=== PATIENT | male | born 1940 | race Caucasian/White ===

== ENCOUNTER 2019-05-01 21:00 | Emergency (ER) | payer MEDICARE, MEDICAID ==
--- NOTE | 2019-05-01 21:17 | ED ---
Shortness of Breath - HPI Summary HPI Summary: 78 year old M arriving via EMS from home to [facility] complains of worsening shortness of breath x2 weeks. Patient developed hiccups 2 weeks ago then shortness of breath. He states there are times when he is gasping for air and unable to breathe. He notes that he felt like he was going to stop breathing last night. No chest pain. The patient rates the pain 2/10 in severity. Symptoms aggravated by nothing. Symptoms alleviated by nothing. He has never had hiccuping symptoms before but has had shortness of breath in the past. VSS en route per EMS. He was placed on supplemental nasal cannula oxygen. Medications reviewed. Allergies noted. Home Medications Medication Instructions Recorded Confirmed Type Atenolol TAB* [Tenormin TAB* 50 MG] 50 mg PO DAILY 05/01/19 05/01/19 History Atorvastatin* [Lipitor*] 20 mg PO DAILY 05/01/19 05/01/19 History Ramipril CAP* [Altace CAP*] 5 mg PO DAILY 05/01/19 05/01/19 History Warfarin TAB(*) [Coumadin TAB(*)] 1 - 3 mg PO DAILY 05/01/19 05/01/19 History - History of Current Complaint Time Seen by Provider: 05/01/19 21:12 Hx Obtained From: Patient, EMS Onset/Duration: Lasting Weeks - 2, Still Present Current Severity: Mild - Allergy/Home Medications Allergies/Adverse Reactions: Allergies Allergy/AdvReac Type Severity Reaction Status Date / Time No Known Allergies Allergy Verified 05/01/19 21:26 Home Medications: Home Medications Atenolol TAB* [Tenormin TAB* 50 MG] 50 mg PO DAILY 05/01/19 [History Confirmed 05/01/19] Atorvastatin* [Lipitor*] 20 mg PO DAILY 05/01/19 [History Confirmed 05/01/19] Ramipril CAP* [Altace CAP*] 5 mg PO DAILY 05/01/19 [History Confirmed 05/01/19] Warfarin TAB(*) [Coumadin TAB(*)] 1 - 3 mg PO DAILY 05/01/19 [History Confirmed 05/01/19] Baclofen TAB* [Lioresal TAB*] 20 mg PO TID PRN #30 tab 05/02/19 [Rx] PMH/Surg Hx/FS Hx/Imm Hx Endocrine/Hematology History: Denies: Hx Diabetes Cardiovascular History: Reports: Hx Coronary Artery Disease, Hx Hypercholesterolemia, Hx Hypertension - ON MEDS, Hx Myocardial Infarction Denies: Hx Angina, Hx Valvular Heart Disease Respiratory History: Reports: Hx Sleep Apnea - PER PT, NOT TESTED Denies: Hx Asthma, Hx Chronic Obstructive Pulmonary Disease (COPD) GI History: Reports: Hx Gastroesophageal Reflux Disease - ON MEDS, Hx Ulcer - 1970s, HEALED WITH MEDS/DIET Musculoskeletal History: Reports: Hx Arthritis - HANDS, LOW BACK Sensory History: Reports: Hx Cataracts - BILATERAL, Hx Contacts or Glasses - GLASSES Opthamlomology History: Reports: Hx Cataracts - BILATERAL, Hx Contacts or Glasses - GLASSES - Surgical History Surgery Procedure, Year, and Place: 2001 LEFT HAND TRAUMA [place] Hx Anesthesia Reactions: No - Family History Known Family History: Positive: Cardiac Disease - Social History Alcohol Use: None Substance Use Type: Reports: None Hx Tobacco Use: Yes Smoking Status (MU): Former Smoker Type: Cigarettes Amount Used/How Often: 2PPD 50 YRS Have You Smoked in the Last Year: No Review of Systems Negative: Chest Pain Positive: Shortness Of Breath All Other Systems Reviewed And Are Negative: Yes Physical Exam - Summary Physical Exam Summary: Appearance: Elderly, somewhat unkempt male lying in bed comfortably in no acute distress with periodic hiccups noted Skin: Warm, dry, no obvious rash Eyes: sclera anicteric, no conjunctival pallor HENT: mucous membranes moist, pharynx appears normal Neck: Supple, nontender Respiratory: Clear to auscultation, no signs of respiratory distress Cardiovascular: Normal S1, S2. No murmurs. Normal distal pulses in tibial and radial bilaterally. Abdomen: Soft, nontender, normal active bowel sounds present Musculoskeletal: Normal, Strength/ROM Intact Neurological: A&Ox3, awake and alert, mentation is normal, speech is fluent and appropriate Psychiatric: affect is normal, does not appear anxious or depressed Triage Information Reviewed: Yes Vital Signs Reviewed: Yes Procedures - Sedation Patient Received Moderate/Deep Sedation with Procedure: No Diagnostics - Laboratory Result Diagrams: 05/01/19 21:39 05/01/19 21:39 Lab Statement: Any lab studies that have been ordered have been reviewed, and results considered in the medical decision making process. - Radiology CXR Radiology Interpretation Completed By: ED Physician - NO ACUTE PROCESS. Pending official report. - CT CHEST CT Interpretation Completed By: Radiologist - IMPRESSION: 1. Nondiagnostic study for pulmonary emboli evaluation due to scan and contrast timing. If there is continued clinical concern for PE, followup chest CT in 24 hours or concurrent V/Q scan recommended. 2. Right lower lobe pulmonary nodule. Based on current Purnima criteria, if high risk optional followup chest CT in 12 months recommended. 3. Small hiatal hernia. 4. Cholelithiasis. ED physician has reviewed this imaging report. - EKG 2129 Summary of EKG Findings: Atrial fibrillation 72 BPM. IVCD. LVH with IVCD. ED physician has reviewed and interpreted this EKG. Re-Evaluation - Re-Evaluation First Eval Re-Evaluation Time: 22:25 Comment: aware of troponin 0.03 Second Eval Re-Evaluation Time: 02:05 Comment: patient feels like he can't breathe per nurse. will order Ativan Course/Dx - Course Course Of Treatment: 78 y/o M presents with worsening shortness of breath x2 weeks. Patient developed hiccups 2 weeks ago then shortness of breath. The dyspnea is not described as typical sense of feeling winded, he just feels like he will stop breathing after a hiccup. He has never had hiccuping symptoms before but has had shortness of breath in the past. No chest pain. VSS en route per EMS. He was placed on supplemental nasal cannula oxygen. He is an elderly, somewhat unkempt male lying in bed comfortably in no acute distress with periodic hiccups noted. Bloodwork results with no significant abnormalities except for troponin 0.03. An EKG shows atrial fibrillation 72 BPM. IVCD. LVH with IVCD. CXR shows no acute process. CHEST CT shows IMPRESSION: 1. Nondiagnostic study for pulmonary emboli evaluation due to scan and contrast timing. If there is continued clinical concern for PE, followup chest CT in 24 hours or concurrent V/Q scan recommended. 2. Right lower lobe pulmonary nodule. Based on current Purnima criteria, if high risk optional followup chest CT in 12 months recommended. 3. Small hiatal hernia. 4. Cholelithiasis. Patient is feeling better. Patient will be discharged home with prescription for Lioresal and follow up from his primary care provider. Patient was instructed to return to Emergency Department for new or worsening symptoms. Patient understands and is agreeable to this plan. - Diagnoses Provider Diagnoses: Dyspnea, Hiccups Discharge ED - Sign-Out/Discharge Documenting (check all that apply): Patient Departure - Discharge Plan Condition: Good Disposition: HOME Prescriptions: Baclofen TAB* [Lioresal TAB*] 20 mg PO TID PRN #30 tab PRN Reason: Hiccups Patient Education Materials: Hiccups (ED), Dyspnea (ED) Referrals: Luca Torres MD [Primary Care Provider] - Additional Instructions: We ran some extensive testing on you tonight which has not shown any problem that would cause your hiccups. The chest film and CT scan of your chest are normal. I have prescribed some medication that should help with the hiccups. If this problem persists, contact your regular doctor for followup. - Billing Disposition and Condition Condition: GOOD Disposition: Home - Attestation Statements Document Initiated by Uday: Yes Documenting Scribe: Svetlana Al Provider For Whom Uday is Documenting (Include Credential): Laith Shaffer MD Scribe Attestation: Svetlana Vicente, scribed for Laith Shaffer MD on 05/06/19 at 1433. Scribe Documentation Reviewed: Yes Provider Attestation: The documentation as recorded by the Svetlana pederson accurately reflects the service I personally performed and the decisions made by me, Laith Shaffer MD Status of Scribe Document: Viewed
[2019-05-01 21:46] LABS: ABS Basophils 0.1 10^3/ul (0-0.2); ABS Eosinophils 0.2 10^3/ul (0-0.6); ABS Lymphocytes 1.6 10^3/ul (1.0-4.8); ABS Monocytes 1.2 10^3/ul (0-0.8); ABS Neutrophils 8.9 10^3/ul (1.5-7.7); Eosinophil % 1.4 %; Hematocrit 47 % (42-52); Lymphocyte % 13.3 %; Mean Corpuscular HGB Conc 34 g/dL (31-36); Mean Corpuscular Hemoglobin 30 pg (27-31); Mean Corpuscular Volume 88 fL (80-94); Nucleated Red Blood Cells % 0.1; Platelet Count 291 10^3/uL (150-450); Red Blood Count 5.33 10^6 /uL (4.18-5.48); Red Cell Distribution Width 13 % (10-15)
[2019-05-01 22:03] LABS: ALT 13 U/L (7-52); AST 18 U/L (13-39); Albumin/Globulin Ratio 1.3 (1-3); Alkaline Phosphatase 62 U/L (34-104); Anion Gap 7 mmol/L (2-11); BUN/Creatinine Ratio 12.5 (8-20); Blood Urea Nitrogen 12 mg/dL (6-24); CO2 Carbon Dioxide 27 mmol/L (22-32); Calcium 9.2 mg/dL (8.6-10.3); Chloride 100 mmol/L (101-111); EGFR African American 92.1 (>60); EGFR Non-African American 76.2 (>60); Globulin 3.2 g/dL (2-4); Glucose 94 mg/dL (70-100); Sodium 134 mmol/L (135-145); Total Protein 7.2 g/dL (6.4-8.9)
[2019-05-01 22:25] LABS: Troponin I 0.03 ng/mL (<0.03)
[2019-05-02] MEDS ORDERED: Iohexol 300* (CONTRAST) 10 ML SDV IV ONE (00:20)
[2019-05-02] MEDS ORDERED: LORazepam INJ* 2 MG/ML 1 ML VIAL IV PUSH ONE (02:06)
[2019-05-02] MEDS ORDERED: Lorazepam PYXIS KEY PRN (02:06)
[2019-05-02] MEDS ORDERED: Baclofen TAB* 20 MG PO ONE (03:16)
[2019-05-02 05:29] VITALS: BP 140/72
[2019-05-02 08:26] LABS: INR 2.18 (0.82-1.09)
== END 2019-05-02 05:29 | disposition home or self-care (01) ==
LOC: ED 21:00
DX: R06.00 Dyspnea, unspecified (principal); R06.6 Hiccough; I48.91 Unspecified atrial fibrillation; R06.02 Shortness of breath; I25.10 Atherosclerotic heart disease of native coronary artery without angina pectoris; E78.00 Pure hypercholesterolemia, unspecified; I10 Essential (primary) hypertension; I25.2 Old myocardial infarction; K21.9 Gastro-esophageal reflux disease without esophagitis; Z87.891 Personal history of nicotine dependence; Z79.899 Other long term (current) drug therapy; Z79.01 Long term (current) use of anticoagulants; R94.31 Abnormal electrocardiogram [ECG] [EKG]
CPT/HCPCS: 36415; 71046; 71260; 80053; 84484; 85025; 85379; 85610; 93005; 96374; 99285; A9270-GY; J2060

== ENCOUNTER 2020-06-26 08:01 | Inpatient (IN) ==
[2020-06-26] MEDS ORDERED: Sodium Phosphate ADULT ENEMA 133 ML BTL PR PRN (15:44)
[2020-06-26] MEDS ORDERED: Senna TAB 8.6 mg TAB PO PRN (15:44)
[2020-06-27 06:52] LABS: Calcium 9.1 mg/dL (8.6-10.3); EGFR African American 108.4 (>60); EGFR Non-African American 89.6 (>60); Potassium 3.9 mmol/L (3.5-5.0)
[2020-06-27 07:17] LABS: INR 2.83 (0.82-1.09)
[2020-06-27] MEDS ORDERED: Aspirin EC 81 mg TAB.EC (enteric coated) PO SCH (09:00)
[2020-06-28 06:18] LABS: INR 2.63 (0.82-1.09)
[2020-06-28 06:39] LABS: Hematocrit 43 % (42-52); Mean Corpuscular HGB Conc 33 g/dL (31-36); Mean Corpuscular Hemoglobin 31 pg (27-31); Mean Corpuscular Volume 94 fL (80-94); Mean Platelet Volume 8.1 fL (7.4-10.4); Platelet Count 386 10^3/uL (150-450); Red Blood Count 4.57 10^6 /uL (4.18-5.48); Red Cell Distribution Width 18 % (10-15); White Blood Count 16.2 10^3/uL (3.5-10.8)
[2020-06-28 06:47] LABS: Activated Partial Thrombo Time 30.4 seconds (26.0-38.0); INR 2.37 (0.82-1.09)
[2020-06-28 06:57] VITALS: BP 145/50
[2020-06-28 06:57] LABS: Anion Gap 10 mmol/L (2-11); Blood Urea Nitrogen 24 mg/dL (6-24); CO2 Carbon Dioxide 26 mmol/L (22-32); Calcium 9.3 mg/dL (8.6-10.3); Chloride 105 mmol/L (101-111); EGFR African American 85.5 (>60); EGFR Non-African American 70.6 (>60); Glucose 93 mg/dL (70-100); Phosphorus 3.6 mg/dL (2.5-5.0); Potassium 3.5 mmol/L (3.5-5.0); Sodium 141 mmol/L (135-145)
[2020-06-28 07:02] LABS: Troponin I 0.05 ng/mL (<0.03)
[2020-06-28 07:28] LABS: ALT 20 U/L (7-52); AST 24 U/L (13-39); Albumin 3.6 g/dL (3.2-5.2); Albumin/Globulin Ratio 0.9 (1-3); Alkaline Phosphatase 88 U/L (34-104); Creatine Kinase 97 U/L (10-223); Globulin 3.9 g/dL (2-4); Indirect Bilirubin 1.1 mg/dL (0.3-1.0); Total Protein 7.5 g/dL (6.4-8.9)
[2020-06-28] MEDS ORDERED: Vancomycin 1,000 MG in NS 0.9% 250 ml 250 ML IVPB ONE (07:32)
[2020-06-28] MEDS ORDERED: NS 0.9% 1000 ml BAG 1,000 ML IV ONE (07:34)
[2020-06-28] MEDS ORDERED: NS 0.9% 1000 ml BAG 1,000 ML IV SCH (07:45)
[2020-06-28 07:50] LABS: Magnesium 1.9 mg/dL (1.9-2.7)
[2020-06-28] MEDS ORDERED: Cefepime 2 GM in Dextrose 2 GM/50 ML BAG IV SCH (08:00)
[2020-06-28] MEDS ORDERED: KCL 10 MEQ/50 ML IVPREMIX 10 MEQ/50 ML BAG IV SCH (08:00)
[2020-06-28] MEDS ORDERED: Vancomycin per Pharmacy 1 EA NOTE FOLLOW UP SCH (08:00)
[2020-06-28] MEDS ORDERED: NORMOSOL-R pH 7.4 1000 mL BAG 1,000 ML IV SCH (08:00)
[2020-06-28 08:49] LABS: TSH Ultra Thyroid Stim Horm 4.75 mcIU/mL (0.34-5.60)
== END 2020-06-28 07:13 | disposition short-term general hospital (02) | DRG 561 ==
LOC: PMRU 15:37 → ICU 06-28 07:03 → PMRU 06-28 07:09
PROVIDERS: ADMIT Physical Medicine & Rehabilitation; ATTEND Physical Medicine & Rehabilitation

== ENCOUNTER 2020-06-28 07:14 | Inpatient (IN) ==
[2020-06-28] MEDS ORDERED: Cefepime ADVAN 1 GM in NS 0.9% 50 ML 50 ML IVPB SCH (08:00)
[2020-06-28] MEDS ORDERED: Vancomycin 1,500 MG in NS 0.9% 250 ml 250 ML IVPB ONE (08:00)
[2020-06-28] MEDS ORDERED: Cefepime 1 GM in Dextrose 1 GM/50 ML BAG IV SCH ×2 (08:30→12:00)
[2020-06-28 08:32] LABS: ABS Basophils 0.1 10^3/ul (0-0.2); ABS Eosinophils 0.6 10^3/ul (0-0.6); ABS Lymphocytes 1.4 10^3/ul (1.0-4.8); ABS Monocytes 1.1 10^3/ul (0-0.8); ABS Neutrophils 8.9 10^3/ul (1.5-7.7); Eosinophil % 4.9 %; Hematocrit 37 % (42-52); Hemoglobin 12.2 g/dL (14.0-18.0); Lymphocyte % 11.4 %; Mean Corpuscular HGB Conc 33 g/dL (31-36); Mean Corpuscular Hemoglobin 30 pg (27-31); Mean Corpuscular Volume 92 fL (80-94); Mean Platelet Volume 8.5 fL (7.4-10.4); Platelet Count 338 10^3/uL (150-450); Red Blood Count 4.04 10^6 /uL (4.18-5.48); Red Cell Distribution Width 17 % (10-15)
[2020-06-28 08:55] LABS: Urine Appearance Cloudy; Urine Bilirubin Negative (Negative); Urine Blood 2+ (Negative); Urine Color Amber; Urine Glucose Negative (Negative); Urine Ketones Negative (Negative); Urine Nitrite Negative (Negative); Urine Protein 2+(100 mg/dL) (Negative); Urine Urobilinogen Negative (Negative)
[2020-06-28] MEDS ORDERED: Vancomycin per Pharmacy 1 EA NOTE FOLLOW UP PRN (08:57)
[2020-06-28 08:58] LABS: TSH Ultra Thyroid Stim Horm 4.16 mcIU/mL (0.34-5.60)
[2020-06-28 09:12] LABS: Urine Bacteria Absent (Absent); Urine Red Blood Cell 3+(>10/hpf) (Absent); Urine Squamous Epithelial Cell Present (Absent); Urine White Blood Cell 3+(>20/hpf) (Absent)
[2020-06-28 10:17] LABS: Albumin 3.2 g/dL (3.2-5.2); Anion Gap 10 mmol/L (2-11); CO2 Carbon Dioxide 24 mmol/L (22-32); Calcium 8.9 mg/dL (8.6-10.3); Chloride 108 mmol/L (101-111); Magnesium 1.9 mg/dL (1.9-2.7); Sodium 142 mmol/L (135-145)
[2020-06-28 10:23] LABS: ALT 18 U/L (7-52); AST 20 U/L (13-39); Albumin/Globulin Ratio 1.1 (1-3); Alkaline Phosphatase 80 U/L (34-104); Blood Urea Nitrogen 25 mg/dL (6-24); EGFR African American 96.3 (>60); EGFR Non-African American 79.6 (>60); Glucose 105 mg/dL (70-100); Total Protein 6.2 g/dL (6.4-8.9); Troponin I 0.03 ng/mL (<0.03)
[2020-06-28] MEDS ORDERED: Piperacillin/Tazobac ADVAN 3.375 GM in NS 0.9% 100 ml BAG 100 ML IV ONE (11:59)
[2020-06-28] MEDS ORDERED: Zosyn per Pharmacy NOTE FOLLOW UP SCH (12:00)
[2020-06-28] MEDS: ZOSYN 3.375 GM Q8H per EXTENDED INFUSION IV SCH (16:53)
[2020-06-28] MEDS: Vancomycin 1,250 MG in NS 0.9% 250 ml 250 ML IVPB SCH ×2 (20:44→23:56)
[2020-06-28] MEDS ORDERED: LORazepam 2 mg VIAL 1 ml ONE ×2 (21:07→21:24)
[2020-06-28] MEDS ORDERED: Lorazepam PYXIS KEY ONE ×2 (21:07→21:24)
[2020-06-28] MEDS ORDERED: Rocuronium 50 mg VIAL 10 mg/ml 5 ml VIAL (50 mg) ONE (21:09)
[2020-06-28] MEDS ORDERED: Succinylcholine 200 mg VIAL 20 mg/ml 10 ml VIAL (200 mg) ONE (21:09)
[2020-06-28] MEDS ORDERED: LORazepam 2 mg VIAL 1 ml IV PUSH ONE ×2 (21:20→23:05)
[2020-06-28] MEDS ORDERED: EPINEPHrine SYR 0.1MG/ML 10 ml SYRINGE ONE (21:27)
[2020-06-28] MEDS ORDERED: Norepinephrine 16MCG/ML IVPRE (4 MG/250 ML) in NS 0.9% IV ONE (21:27)
[2020-06-28] MEDS ORDERED: Ketamine HCL 50 mg/ml 10 ml VIAL (500 MG) ONE (21:27)
[2020-06-28] MEDS ORDERED: levETIRAcetam 1000MG IVPREMIX 1,000 MG/100 ML BAG IVPB ONE (21:30)
[2020-06-28] MEDS ORDERED: Propofol 10 mg/ml 100 ML BTL 100 ML ONE (21:46)
[2020-06-28] MEDS: Propofol 10 mg/ml 100 ML BTL 100 ML IV SCH (21:50)
[2020-06-28 22:00] LABS: Urine Appearance Cloudy; Urine Bilirubin Negative (Negative); Urine Blood 2+ (Negative); Urine Color Amber; Urine Glucose Negative (Negative); Urine Ketones Negative (Negative); Urine Nitrite Negative (Negative); Urine Protein 1+(30 mg/dL) (Negative); Urine Specific Gravity 1.018 (1.002-1.030); Urine Urobilinogen Negative (Negative)
[2020-06-28 22:02] LABS: Urine Bacteria 1+ (Absent); Urine Red Blood Cell 2+(6-10/hpf) (Absent); Urine White Blood Cell 1+(6-10/hpf) (Absent)
[2020-06-28 22:37] LABS: Hematocrit 36 % (42-52); Hemoglobin 11.3 g/dL (14.0-18.0); Mean Corpuscular HGB Conc 32 g/dL (31-36); Mean Corpuscular Hemoglobin 30 pg (27-31); Mean Corpuscular Volume 95 fL (80-94); Mean Platelet Volume 7.8 fL (7.4-10.4); Platelet Count 318 10^3/uL (150-450); Red Blood Count 3.77 10^6 /uL (4.18-5.48); Red Cell Distribution Width 17 % (10-15); White Blood Count 13.9 10^3/uL (3.5-10.8)
[2020-06-28 22:40] LABS: INR 2.86 (0.82-1.09)
[2020-06-28 22:52] LABS: ALT 59 U/L (7-52); AST 85 U/L (13-39); Albumin 2.9 g/dL (3.2-5.2); Alkaline Phosphatase 68 U/L (34-104); Anion Gap 11 mmol/L (2-11); Blood Urea Nitrogen 24 mg/dL (6-24); CO2 Carbon Dioxide 21 mmol/L (22-32); Calcium 8.1 mg/dL (8.6-10.3); Chloride 110 mmol/L (101-111); EGFR African American 77.5 (>60); EGFR Non-African American 64.1 (>60); Globulin 2.8 g/dL (2-4); Glucose 139 mg/dL (70-100); Magnesium 1.8 mg/dL (1.9-2.7); Phosphorus 5.8 mg/dL (2.5-5.0); Potassium 3.6 mmol/L (3.5-5.0); Sodium 142 mmol/L (135-145); Total Protein 5.7 g/dL (6.4-8.9)
[2020-06-28] MEDS ORDERED: Magnesium Sulfate 2 gm BAG 2 GM/50 ML BAG IVPB ONE (22:54)
[2020-06-28] MEDS ORDERED: Midazolam 2 mg/2 ml VIAL 1 mg/ml 2 ml VIAL (2 mg) IV SLOW PU ONE (22:55)
[2020-06-28] MEDS ORDERED: Norepinephrine 16MCG/ML IVPRE 4,000 MCG/250 ML BAG IV SCH ×2 (23:00)
[2020-06-28] MEDS ORDERED: Lorazepam PYXIS KEY PRN (23:05)
[2020-06-28 23:22] LABS: Urine Creatinine Concentration 96.98 mg/dL
[2020-06-28 23:26] LABS: Troponin I 0.07 ng/mL (<0.03)
[2020-06-28 23:27] LABS: ABS Basophils 0.1 10^3/ul (0-0.2); ABS Eosinophils 0.3 10^3/ul (0-0.6); ABS Lymphocytes 1.1 10^3/ul (1.0-4.8); ABS Monocytes 0.8 10^3/ul (0-0.8); ABS Neutrophils 11.6 10^3/ul (1.5-7.7); Eosinophil % 1.9 %; Lymphocyte % 7.7 %
[2020-06-28] MEDS: Chlorhexidine MOUTHWASH 0.12% 15 ML UDC TOPICAL SCH (23:40)
[2020-06-28] MEDS: Pantoprazole VIAL 40 MG VIAL IV SCH (23:40)
[2020-06-29] MEDS: Propofol 10 mg/ml 100 ML BTL 100 ML IV SCH ×3 (01:45→18:43)
[2020-06-29] MEDS: Vancomycin 1,250 MG in NS 0.9% 250 ml 250 ML IVPB SCH ×2 (01:45→13:44)
[2020-06-29] MEDS: ZOSYN 3.375 GM Q8H per EXTENDED INFUSION IV SCH ×3 (01:48→17:27)
[2020-06-29 02:18] LABS: Troponin I 0.17 ng/mL (<0.03)
[2020-06-29] MEDS ORDERED: Propofol 10 mg/ml 100 ML BTL 100 ML IV SCH (03:08)
[2020-06-29] MEDS: Chlorhexidine MOUTHWASH 0.12% 15 ML UDC TOPICAL SCH ×6 (05:08→23:00)
[2020-06-29 05:37] LABS: Hematocrit 35 % (42-52); Hemoglobin 11.6 g/dL (14.0-18.0); Mean Corpuscular HGB Conc 33 g/dL (31-36); Mean Corpuscular Hemoglobin 31 pg (27-31); Mean Corpuscular Volume 93 fL (80-94); Mean Platelet Volume 7.8 fL (7.4-10.4); Platelet Count 317 10^3/uL (150-450); Red Cell Distribution Width 17 % (10-15); White Blood Count 19.1 10^3/uL (3.5-10.8)
[2020-06-29 06:07] LABS: Troponin I 0.24 ng/mL (<0.03)
[2020-06-29 06:34] LABS: ALT 56 U/L (7-52); AST 73 U/L (13-39); Albumin 2.8 g/dL (3.2-5.2); Alkaline Phosphatase 75 U/L (34-104); Anion Gap 8 mmol/L (2-11); Blood Urea Nitrogen 25 mg/dL (6-24); CO2 Carbon Dioxide 23 mmol/L (22-32); Calcium 8.4 mg/dL (8.6-10.3); Chloride 111 mmol/L (101-111); EGFR African American 71.5 (>60); EGFR Non-African American 59.1 (>60); Globulin 2.9 g/dL (2-4); Glucose 96 mg/dL (70-100); Sodium 142 mmol/L (135-145); Total Protein 5.7 g/dL (6.4-8.9)
[2020-06-29 07:22] LABS: ABS Basophils 0.1 10^3/ul (0-0.2); ABS Eosinophils 0.1 10^3/ul (0-0.6); ABS Lymphocytes 0.9 10^3/ul (1.0-4.8); ABS Monocytes 1.6 10^3/ul (0-0.8); ABS Neutrophils 16.5 10^3/ul (1.5-7.7); Eosinophil % 0.3 %; Lymphocyte % 4.6 %
[2020-06-29] MEDS: NS 0.9% 1000 ml BAG 1,000 ML IV SCH ×2 (08:05→23:21)
[2020-06-29 08:26] LABS: Magnesium 2.3 mg/dL (1.9-2.7); Phosphorus 4.3 mg/dL (2.5-5.0)
[2020-06-29] MEDS ORDERED: levETIRAcetam 500 MG IVPREMIX 500 MG/100 ML BAG IV SCH (09:00)
[2020-06-29] MEDS: Pantoprazole VIAL 40 MG VIAL IV SCH (09:24)
[2020-06-29] MEDS: LORazepam 2 mg VIAL 1 ml IV PUSH PRN ×2 (09:40→12:45)
[2020-06-29] MEDS ORDERED: levETIRAcetam 500 MG/100 ML IV ONE (10:00)
[2020-06-29 10:20] LABS: INR 2.65 (0.82-1.09)
[2020-06-29] MEDS ORDERED: hydrALAZINE 20 mg/ml 1 ML Vial IV IV SLOW PU PRN (11:42)
[2020-06-29] MEDS ORDERED: Meperidine 50 mg/ml SYRINGE 1 ml ONE (16:06)
[2020-06-29] MEDS ORDERED: Meperidine 50 mg/ml SYRINGE 1 ml IV ONE (16:15)
[2020-06-29] MEDS ORDERED: Meperidine 50 mg/ml SYRINGE 1 ml IV PRN (18:07)
[2020-06-29] MEDS ORDERED: Famotidine IV 10 MG/ML 2 ml VIAL (20 mg) IV SLOW PU SCH (21:00)
[2020-06-29 21:28] LABS: Troponin I 0.19 ng/mL (<0.03)
[2020-06-29] MEDS: levETIRAcetam 1000MG IVPREMIX 1,000 MG/100 ML BAG IVPB SCH (21:49)
[2020-06-30] MEDS: Vancomycin 1,250 MG in NS 0.9% 250 ml 250 ML IVPB SCH (00:53)
[2020-06-30] MEDS: ZOSYN 3.375 GM Q8H per EXTENDED INFUSION IV SCH ×3 (00:54→17:25)
[2020-06-30] MEDS: Chlorhexidine MOUTHWASH 0.12% 15 ML UDC TOPICAL SCH ×5 (01:59→20:00)
[2020-06-30] MEDS: Propofol 10 mg/ml 100 ML BTL 100 ML IV SCH ×3 (01:59→17:26)
[2020-06-30 04:52] LABS: Hematocrit 37 % (42-52); Hemoglobin 12.3 g/dL (14.0-18.0); Mean Corpuscular HGB Conc 33 g/dL (31-36); Mean Corpuscular Hemoglobin 31 pg (27-31); Mean Corpuscular Volume 94 fL (80-94); Platelet Count 288 10^3/uL (150-450); Red Blood Count 3.95 10^6 /uL (4.18-5.48); Red Cell Distribution Width 17 % (10-15); White Blood Count 14.8 10^3/uL (3.5-10.8)
[2020-06-30 04:58] LABS: INR 3.53 (0.82-1.09)
[2020-06-30 05:23] LABS: Calcium 8.5 mg/dL (8.6-10.3); EGFR African American 61.8 (>60); EGFR Non-African American 51.1 (>60); Magnesium 2.1 mg/dL (1.9-2.7); Phosphorus 4.1 mg/dL (2.5-5.0); Potassium 3.7 mmol/L (3.5-5.0)
[2020-06-30] MEDS: NS 0.9% 1000 ml BAG 1,000 ML IV SCH (08:32)
[2020-06-30] MEDS: levETIRAcetam 1000MG IVPREMIX 1,000 MG/100 ML BAG IVPB SCH ×2 (08:32→20:00)
[2020-06-30] MEDS: Pantoprazole VIAL 40 MG VIAL IV SCH (08:32)
[2020-06-30] MEDS: Lactated Ringers 1000 ml BAG 1,000 ML IV SCH (10:05)
[2020-06-30] MEDS ORDERED: fentaNYL 100 mcg/2 ml 50 MCG/ML VIAL ONE (10:26)
[2020-06-30] MEDS: fentaNYL 100 mcg/2 ml 50 MCG/ML VIAL IV SLOW PU PRN (10:27)
[2020-06-30] MEDS: cefTRIAXone 1 gm/50 mL NS BAG 1 GM/50 ML BAG IVPB SCH ×2 (11:50→12:59)
[2020-06-30] MEDS ORDERED: Vancomycin Trough Check NOTE FOLLOW UP ONE (12:30)
[2020-07-01] MEDS: ZOSYN 3.375 GM Q8H per EXTENDED INFUSION IV SCH ×2 (00:27→09:36)
[2020-07-01] MEDS: Chlorhexidine MOUTHWASH 0.12% 15 ML UDC TOPICAL SCH ×8 (00:27→23:56)
[2020-07-01] MEDS: Propofol 10 mg/ml 100 ML BTL 100 ML IV SCH ×5 (00:46→23:56)
[2020-07-01] MEDS: fentaNYL 100 mcg/2 ml 50 MCG/ML VIAL IV SLOW PU PRN ×5 (02:00→13:36)
[2020-07-01 05:09] LABS: Hematocrit 36 % (42-52); Hemoglobin 11.7 g/dL (14.0-18.0); Mean Corpuscular HGB Conc 33 g/dL (31-36); Mean Corpuscular Hemoglobin 30 pg (27-31); Mean Corpuscular Volume 94 fL (80-94); Mean Platelet Volume 8.2 fL (7.4-10.4); Platelet Count 263 10^3/uL (150-450); Red Blood Count 3.84 10^6 /uL (4.18-5.48); Red Cell Distribution Width 18 % (10-15); White Blood Count 12.6 10^3/uL (3.5-10.8)
[2020-07-01 05:17] LABS: INR 3.8 (0.82-1.09)
[2020-07-01 05:24] LABS: Calcium 8.3 mg/dL (8.6-10.3); Potassium 3.6 mmol/L (3.5-5.0)
[2020-07-01 05:30] LABS: EGFR African American 51.2 (>60); EGFR Non-African American 42.3 (>60); Phosphorus 3.6 mg/dL (2.5-5.0)
[2020-07-01] MEDS: Lactated Ringers 1000 ml BAG 1,000 ML IV SCH (06:14)
[2020-07-01] MEDS ORDERED: Potassium Chloride LIQUID 20 MEQ/15 ML LIQUID PO ONE (07:51)
[2020-07-01] MEDS: levETIRAcetam 1000MG IVPREMIX 1,000 MG/100 ML BAG IVPB SCH (09:36)
[2020-07-01] MEDS: Pantoprazole VIAL 40 MG VIAL IV SCH (09:36)
[2020-07-01] MEDS: cefTRIAXone 1 gm/50 mL NS BAG 1 GM/50 ML BAG IVPB SCH (11:44)
[2020-07-01] MEDS ORDERED: Valproic Acid IV 100 MG/ML 5 ML VIAL (500 MG) IVPB SCH (21:00)
[2020-07-01] MEDS: Valproic Acid LIQ 250 MG/5 ML UDC PO SCH (21:21)
[2020-07-02] MEDS: Lactated Ringers 1000 ml BAG 1,000 ML IV SCH ×2 (01:44→21:48)
[2020-07-02] MEDS: Chlorhexidine MOUTHWASH 0.12% 15 ML UDC TOPICAL SCH ×6 (04:30→23:03)
[2020-07-02 04:34] LABS: Hematocrit 36 % (42-52); Hemoglobin 11.9 g/dL (14.0-18.0); Mean Corpuscular HGB Conc 33 g/dL (31-36); Mean Corpuscular Hemoglobin 31 pg (27-31); Mean Corpuscular Volume 94 fL (80-94); Mean Platelet Volume 8.6 fL (7.4-10.4); Platelet Count 273 10^3/uL (150-450); Red Blood Count 3.87 10^6 /uL (4.18-5.48); Red Cell Distribution Width 18 % (10-15); White Blood Count 10.5 10^3/uL (3.5-10.8)
[2020-07-02 04:38] LABS: INR 3.08 (0.82-1.09)
[2020-07-02 04:50] LABS: Calcium 8.2 mg/dL (8.6-10.3); EGFR African American 48.7 (>60); EGFR Non-African American 40.3 (>60); Phosphorus 3.4 mg/dL (2.5-5.0); Potassium 3.9 mmol/L (3.5-5.0)
[2020-07-02] MEDS: Propofol 10 mg/ml 100 ML BTL 100 ML IV SCH ×3 (05:52→20:16)
[2020-07-02] MEDS: Pantoprazole VIAL 40 MG VIAL IV SCH (07:54)
[2020-07-02] MEDS: Valproic Acid LIQ 250 MG/5 ML UDC PO SCH ×2 (07:54→20:45)
[2020-07-02] MEDS: cefTRIAXone 1 gm/50 mL NS BAG 1 GM/50 ML BAG IVPB SCH (13:52)
[2020-07-03] MEDS: Chlorhexidine MOUTHWASH 0.12% 15 ML UDC TOPICAL SCH ×6 (02:33→23:48)
[2020-07-03] MEDS: Propofol 10 mg/ml 100 ML BTL 100 ML IV SCH ×3 (04:08→22:23)
[2020-07-03 05:15] LABS: ABS Basophils 0.1 10^3/ul (0-0.2); ABS Eosinophils 0.4 10^3/ul (0-0.6); ABS Lymphocytes 1.6 10^3/ul (1.0-4.8); ABS Monocytes 1.1 10^3/ul (0-0.8); ABS Neutrophils 6.8 10^3/ul (1.5-7.7); Eosinophil % 3.5 %; Hematocrit 37 % (42-52); Hemoglobin 12.2 g/dL (14.0-18.0); Lymphocyte % 16.4 %; Mean Corpuscular HGB Conc 33 g/dL (31-36); Mean Corpuscular Hemoglobin 31 pg (27-31); Mean Corpuscular Volume 94 fL (80-94); Mean Platelet Volume 8.1 fL (7.4-10.4); Platelet Count 266 10^3/uL (150-450); Red Blood Count 3.99 10^6 /uL (4.18-5.48); Red Cell Distribution Width 18 % (10-15)
[2020-07-03 05:30] LABS: Calcium 8.7 mg/dL (8.6-10.3); EGFR African American 49.8 (>60); EGFR Non-African American 41.1 (>60); Phosphorus 3.8 mg/dL (2.5-5.0)
[2020-07-03 05:32] LABS: INR 2.54 (0.82-1.09)
[2020-07-03] MEDS: Pantoprazole VIAL 40 MG VIAL IV SCH (09:12)
[2020-07-03] MEDS: Valproic Acid LIQ 250 MG/5 ML UDC PO SCH ×3 (09:12→20:56)
[2020-07-03] MEDS: cefTRIAXone 1 gm/50 mL NS BAG 1 GM/50 ML BAG IVPB SCH (12:29)
[2020-07-03] MEDS: Lactated Ringers 1000 ml BAG 1,000 ML IV SCH (17:37)
[2020-07-04] MEDS: Chlorhexidine MOUTHWASH 0.12% 15 ML UDC TOPICAL SCH ×6 (03:39→23:58)
[2020-07-04] MEDS: Propofol 10 mg/ml 100 ML BTL 100 ML IV SCH ×4 (04:53→23:15)
[2020-07-04 04:58] LABS: ABS Basophils 0.1 10^3/ul (0-0.2); ABS Eosinophils 0.5 10^3/ul (0-0.6); ABS Lymphocytes 1.4 10^3/ul (1.0-4.8); ABS Monocytes 0.9 10^3/ul (0-0.8); ABS Neutrophils 7.1 10^3/ul (1.5-7.7); Eosinophil % 5.1 %; Hematocrit 39 % (42-52); Hemoglobin 12.7 g/dL (14.0-18.0); Mean Corpuscular HGB Conc 33 g/dL (31-36); Mean Corpuscular Hemoglobin 31 pg (27-31); Mean Corpuscular Volume 94 fL (80-94); Mean Platelet Volume 8.1 fL (7.4-10.4); Nucleated Red Blood Cells % 0.1; Platelet Count 251 10^3/uL (150-450); Red Blood Count 4.09 10^6 /uL (4.18-5.48); Red Cell Distribution Width 18 % (10-15); White Blood Count 9.9 10^3/uL (3.5-10.8)
[2020-07-04 05:03] LABS: INR 2.3 (0.82-1.09)
[2020-07-04 05:14] LABS: Calcium 8.4 mg/dL (8.6-10.3); EGFR African American 58.8 (>60); EGFR Non-African American 48.6 (>60); Magnesium 1.9 mg/dL (1.9-2.7); Phosphorus 3.5 mg/dL (2.5-5.0); Potassium 3.9 mmol/L (3.5-5.0)
[2020-07-04] MEDS ORDERED: Potassium Chlor 20 meq TAB.ER PO ONE (05:31)
[2020-07-04] MEDS ORDERED: KCL 10 MEQ/50 ML IVPREMIX 10 MEQ/50 ML BAG IV ONE (05:39)
[2020-07-04] MEDS: Pantoprazole VIAL 40 MG VIAL IV SCH (08:30)
[2020-07-04] MEDS: Valproic Acid LIQ 250 MG/5 ML UDC PO SCH ×2 (08:30→20:43)
[2020-07-04] MEDS: Lactated Ringers 1000 ml BAG 1,000 ML IV SCH (08:48)
[2020-07-04] MEDS: cefTRIAXone 1 gm/50 mL NS BAG 1 GM/50 ML BAG IVPB SCH (11:26)
[2020-07-05] MEDS: Chlorhexidine MOUTHWASH 0.12% 15 ML UDC TOPICAL SCH ×3 (04:00→11:26)
[2020-07-05] MEDS: Propofol 10 mg/ml 100 ML BTL 100 ML IV SCH ×2 (04:29→10:18)
[2020-07-05] MEDS: Lactated Ringers 1000 ml BAG 1,000 ML IV SCH (04:29)
[2020-07-05 07:33] LABS: ABS Basophils 0.1 10^3/ul (0-0.2); ABS Eosinophils 0.6 10^3/ul (0-0.6); ABS Lymphocytes 1.5 10^3/ul (1.0-4.8); ABS Monocytes 0.9 10^3/ul (0-0.8); ABS Neutrophils 6.1 10^3/ul (1.5-7.7); Eosinophil % 6.8 %; Hematocrit 39 % (42-52); Hemoglobin 12.7 g/dL (14.0-18.0); Lymphocyte % 16.1 %; Mean Corpuscular HGB Conc 33 g/dL (31-36); Mean Corpuscular Hemoglobin 30 pg (27-31); Mean Corpuscular Volume 93 fL (80-94); Mean Platelet Volume 8.7 fL (7.4-10.4); Nucleated Red Blood Cells % 0.1; Platelet Count 251 10^3/uL (150-450); Red Blood Count 4.18 10^6 /uL (4.18-5.48); Red Cell Distribution Width 18 % (10-15); White Blood Count 9.1 10^3/uL (3.5-10.8)
[2020-07-05 07:43] LABS: Calcium 8.4 mg/dL (8.6-10.3); EGFR African American 57.9 (>60); EGFR Non-African American 47.8 (>60); Magnesium 1.9 mg/dL (1.9-2.7); Phosphorus 3.5 mg/dL (2.5-5.0); Potassium 3.9 mmol/L (3.5-5.0)
[2020-07-05 07:48] LABS: INR 2.02 (0.82-1.09)
[2020-07-05] MEDS: Valproic Acid LIQ 250 MG/5 ML UDC PO SCH (09:11)
[2020-07-05] MEDS: Pantoprazole VIAL 40 MG VIAL IV SCH (09:11)
[2020-07-05] MEDS ORDERED: Morphine 10 MG/ML VIAL (1 ml) IV ONE (13:45)
[2020-07-05] MEDS ORDERED: LORazepam 2 mg VIAL 1 ml IV PUSH ONE (13:45)
[2020-07-05] MEDS ORDERED: Morphine PCA 5 MG/ML Titrate per Protocol PCA SCH (14:00)
[2020-07-05] MEDS ORDERED: LORazepam VIAL (for drip) 100 MG in D5W IV SCH (14:00)
[2020-07-05 14:10] VITALS: BP 128/55
== END 2020-07-05 16:10 | disposition expired | DRG 64 ==
LOC: ICU 07:14
PROVIDERS: ADMIT Hospitalist; ATTEND Internal Medicine Critical Care Medicine